=== PATIENT | male | born 1935 | race Caucasian/White ===

== ENCOUNTER → 2022-12-18 | Outpatient (CLI) | payer OTHER | END | disposition home or self-care (01) | LOC: SHCH 08:35 | PROVIDERS: ATTEND Internal Medicine Cardiovascular Disease | DX: G45.9 Transient cerebral ischemic attack, unspecified (principal) | CPT/HCPCS: 93880 ==

== ENCOUNTER → 2024-02-17 | Outpatient (CLI) | payer OTHER ==
--- NOTE | 2024-02-18 08:29 | HMCSR ---
APPROVED REPORT Laterality: Bilateral Doppler Spectral Velocity Analysis PSV / EDVPSV / EDV ECA (R) 105 / cm/sECA (L) 100 / cm/s dICA (R)dICA (L) 133 / 34 cm/s Merlin (R) 112 / 11 cm/smICA (L) 100 / 29 cm/s pICA (R) 80 / 15 cm/spICA (L) 104 / 24 cm/s dCCA (R) 54 / 9 cm/sdCCA (L) 92 / 18 cm/s mCCA (R) 85 / 9 cm/smCCA (L) 97 / 20 cm/s pCCA (R) 65 / 9 cm/spCCA (L) 123 / 19 cm/s Vert (R) 49 / cm/sVert (L) 61 / cm/s Subl. (R) 164 / cm/sSubl. (L) 140 / cm/s ICA/CCA 1.32ICA/CCA 1.08 Technologist Impression Mild plaque noted in the bilateral carotid arteries, pre-occlusive waveforms noted in the right commo n carotid artery. Collateralized flow is noted through the chronically occluded right internal carotid artery. Elevated velocities noted in the distal left internal carotid artery. The bilateral vertebral arteries reflect antegrade flow. Conclusion As above. Conclusion As above.
== END | disposition home or self-care (01) ==
LOC: SHCH 09:15
PROVIDERS: ATTEND Internal Medicine Cardiovascular Disease
DX: I65.23 Occlusion and stenosis of bilateral carotid arteries (principal); I77.9 Disorder of arteries and arterioles, unspecified
CPT/HCPCS: 93880